=== PATIENT | male | born 1945 | race African-American/Black ===

== ENCOUNTER 2016-08-08 08:46 | Inpatient (IN) | payer BC, OTHER ==
[~2016-08-08] VITALS: Ht 165.1 cm; Wt 72.6 kg
[2016-08-08 08:49] VITALS: BP_SYST 120
[2016-08-08] MEDS ORDERED: HYDROmorphone 1 MG INJ. 1 MG/ML AMPUL IVP ONE (09:30)
[2016-08-08 10:23] LABS: BASOPHILS # (AUTO) 0.1 K/uL (0.0-0.2); BASOPHILS % (AUTO) 0.8 % (0.0-2.0); EOSINOPHILS # (AUTO) 0.3 K/uL (0.0-0.4); EOSINOPHILS % (AUTO) 2.8 % (0.0-4.0); HEMATOCRIT 32.8 % (36-54); HEMOGLOBIN 10.6 g/dL (14.0-18.0); LYMPHOCYTES # (AUTO) 2.1 K/uL (1.0-5.5); LYMPHOCYTES % (AUTO) 17.9 % (20.5-51.5); MEAN CORPUSCULAR HEMOGLOBIN 25 pg (27-31); MEAN CORPUSCULAR HGB CONC 32 % (32-36); MEAN CORPUSCULAR VOLUME 76 fL (79.0-98.0); MONOCYTES # (AUTO) 0.4 K/uL (0.0-1.0); MONOCYTES % (AUTO) 3.5 % (1.7-9.3); NEUTROPHILS # (AUTO) 8.9 K/uL (1.8-7.7); PLATELET COUNT (AUTO) 609 K/uL (130-430); RED BLOOD CELL COUNT(AUTO) 4.32 MIL/uL (4.2-6.2); RED CELL DISTRIBUTION WIDTH 14.5 % (9.0-15.0); WHITE BLOOD COUNT (AUTO) 11.8 K/uL (4.8-10.8)
[2016-08-08 10:28] LABS: CALCIUM 9.6 mg/dL (8.4-11.0); CREATININE 1.74 mg/dL (0.55-1.30); POTASSIUM 3.7 mmol/L (3.5-5.1)
[2016-08-08 10:30] LABS: BILIRUBIN,URINE NEGATIVE (NEGATIVE); CLARITY/URINE CLEAR (CLEAR); COLOR,URINE YELLOW (YELLOW); GLUCOSE,URINE NEGATIVE (NEGATIVE); KETONES,URINE NEGATIVE (NEGATIVE); LEUKOCYTE ESTERASE ,URINE NEGATIVE (NEGATIVE); NITRITE, URINE NEGATIVE (NEGATIVE); PROTEIN URINE NEGATIVE (NEGATIVE); UROBILINOGEN,URINE 0.2 (0.2-1.0)
[2016-08-08] MEDS ORDERED: NACL 0.9% 1,000 ML IV ONE (10:30)
[2016-08-08 10:32] LABS: ALBUMIN 3.4 g/dL (3.4-4.8); TOTAL BILIRUBIN 0.2 mg/dL (0.0-1.0); TOTAL PROTEIN, SERUM 8.1 g/dL (6.4-8.3)
[2016-08-08 10:32] LABS: BLOOD, URINE TRACE (NEGATIVE)
[2016-08-08 10:40] LABS: BACTERIA,URINE FEW /HPF (None Seen); RBC,URINE 0-3 /HPF (0-3); WBC,URINE 0-3 /HPF (0-3)
[2016-08-08] MEDS ORDERED: HYDROmorphone 2 MG/ML VIAL IVP ONE (12:15)
[2016-08-08] MEDS ORDERED: VANCOMYCIN HCL 1,000 MG in NS 250 ML IV ONE (12:30)
[2016-08-08] MEDS ORDERED: VANCOMYCIN HCL 1000 MG/VIAL IV ONE (12:57)
[2016-08-08] MEDS ORDERED: MET10 PO (13:10)
[2016-08-08] MEDS ORDERED: HYDR-4100 PO (13:10)
[2016-08-08] MEDS ORDERED: LISI-219 PO (13:13)
[2016-08-08] MEDS ORDERED: VITD2000 PO (13:13)
[2016-08-08 14:26] VITALS: BP_SYST 135
[2016-08-08 16:00] VITALS: BP_SYST 133
[2016-08-08] MEDS ORDERED: IPRATROPIUM BROM 0.5 MG/2.5 ML VIAL.NEB (ATROVENT) INH PRN (16:45)
[2016-08-08] MEDS ORDERED: ALBUTEROL SULFATE 0.083% 2.5 MG/3 ML VIAL.NEB INH PRN (16:45)
[2016-08-08] MEDS ORDERED: *HEPARIN PER PHARMACY XX ONE (16:45)
[2016-08-08] MEDS ORDERED: ZOSYN (PIPERACILLIN/TAZO) 3.375 GM in DEX-ISO (50ml) IV ONE (17:15)
[2016-08-08 18:12] VITALS: BP_SYST 133
[2016-08-08] MEDS: ALBUTEROL SULFATE 0.083% 2.5 MG/3 ML VIAL.NEB INH SCH ×2 (19:24→23:00)
[2016-08-08] MEDS: METHADONE HCL 10 MG TABLET PO SCH ×2 (19:24→21:00)
[2016-08-08] MEDS: IPRATROPIUM BROM 0.5 MG/2.5 ML VIAL.NEB (ATROVENT) INH SCH ×2 (19:24→23:00)
[2016-08-08 19:40] VITALS: BP_SYST 124
[2016-08-08] MEDS: DOCUSATE SODIUM 100 MG CAPSULE PO SCH (21:03)
[2016-08-08] MEDS: HEPARIN 25,000 UNITS/D5W 250mL PREMIX IV PRN (22:05)
[2016-08-08] MEDS: HYDROcodone/ACETAMIN 10-325 MG TAB PO PRN (23:27)
[2016-08-09 00:09] VITALS: BP_SYST 116
[2016-08-09] MEDS: PIPERACILLIN/TAZO 3.375/DEX-IS 50 ML IV SCH ×4 (00:58→17:15)
[2016-08-09 04:00] VITALS: BP_SYST 114
[2016-08-09] MEDS: HEPARIN 25,000 UNITS/D5W 250mL PREMIX IV PRN (06:12)
[2016-08-09] MEDS: ALBUTEROL SULFATE 0.083% 2.5 MG/3 ML VIAL.NEB INH SCH ×5 (07:48→23:00)
[2016-08-09] MEDS: IPRATROPIUM BROM 0.5 MG/2.5 ML VIAL.NEB (ATROVENT) INH SCH ×5 (07:48→23:00)
[2016-08-09 08:01] VITALS: BP_SYST 128
[2016-08-09] MEDS ORDERED: COMMUNICATION ORDER XX ONE (08:30)
[2016-08-09] MEDS ORDERED: METHADONE HCL 10 MG TABLET PO ONE (08:45)
[2016-08-09 12:04] VITALS: BP_SYST 117
[2016-08-09] MEDS: HYDROcodone/ACETAMIN 10-325 MG TAB PO PRN ×2 (14:48→23:59)
[2016-08-09] MEDS: METHADONE HCL 10 MG TABLET PO SCH (18:55)
[2016-08-09 19:57] VITALS: BP_SYST 117
[2016-08-09] MEDS: DOCUSATE SODIUM 100 MG CAPSULE PO SCH (20:44)
[2016-08-10 00:21] VITALS: BP_SYST 120
[2016-08-10] MEDS: PIPERACILLIN/TAZO 3.375/DEX-IS 50 ML IV SCH ×2 (02:25→06:40)
[2016-08-10] MEDS: IPRATROPIUM BROM 0.5 MG/2.5 ML VIAL.NEB (ATROVENT) INH SCH ×2 (03:00→07:15)
[2016-08-10] MEDS: ALBUTEROL SULFATE 0.083% 2.5 MG/3 ML VIAL.NEB INH SCH ×2 (03:00→07:15)
[2016-08-10 04:00] VITALS: BP_SYST 113
[2016-08-10] MEDS: METHADONE HCL 10 MG TABLET PO SCH (06:37)
[2016-08-10 08:00] VITALS: BP_SYST 118
[2016-08-10 10:00] VITALS: BP_SYST 116
[2016-08-10] MEDS ORDERED: AMOX-423 PO (10:27)
[2016-08-10 10:32] VITALS: BP_SYST 118
== END 2016-08-10 14:18 | disposition home or self-care (01) | DRG 435 ==
LOC: SED 08:46 → STU 13:30
PROVIDERS: ADMIT Internal Medicine Hospice and Palliative Medicine; ATTEND Internal Medicine Hospice and Palliative Medicine
DX: C25.9 Malignant neoplasm of pancreas, unspecified (principal); J18.9 Pneumonia, unspecified organism; B15.9 Hepatitis A without hepatic coma; C79.51 Secondary malignant neoplasm of bone; C78.00 Secondary malignant neoplasm of unspecified lung; I10 Essential (primary) hypertension; N18.9 Chronic kidney disease, unspecified; G89.29 Other chronic pain; Z90.3 Acquired absence of stomach [part of]
CPT/HCPCS: 36415; 71010; 71250-TC; 80053; 81000-TC; 83605; 84484; 85025; 85379; 85730-TC; 87040-TC; 93005; 94640; 96361; 96365; 96366; 96367; 96375; 99285; J1170; J1644; J1956; J2543; J3370; J7030; J7040; J7050; J7060